=== PATIENT | female | born 1985 | race Two or more races ===

== ENCOUNTER 2017-08-20 11:59 | Emergency (ER) | payer MEDICAID ==
[~2017-08-20] VITALS: Ht 162.6 cm; Wt 68.0 kg
[~2017-08-20 11:59] MED LIST: ALBUTEROL2.5 MG/3 M INH; PREDNISONE10 MG ORAL; PROMETHAZINE-C118 M1 ORAL; ZITHROMAX250 MG ORAL
[2017-08-20 12:09] VITALS: BP 154/84
--- NOTE | 2017-08-20 12:10 | Emergency Room Report ---
History of Present Illness General Chief Complaint: Upper Respiratory Illness Present Illness HPI 32-year-old female presents to the emergency department complaining of cough, wheezes an exacerbation of her asthma. Patient states she is out of her inhaler and nebulizer treatments at home she recently got a cold which exacerbated her asthma. Patient denies rashes, swelling of the lips or tongue. Patient denies neck pain or stiffness, fevers, chills. Denies CP, Palpitations , LOC, AMS, dizziness, Changes in Vision, Sensation, paresthesias, or a sudden severe headache. Allergies: Coded Allergies: No Known Allergies (Unverified , 04/29/16) Patient History Past Medical History: see triage record Past Surgical History: none Pertinent Family History: none Now: No Immunizations: UTD Reviewed Nursing Documentation: PMH: Agreed, PSxH: Agreed Nursing Documentation-PMH Hx Asthma: Yes Review of Systems All Other Systems: negative except mentioned in HPI Physical Exam Vital Signs Date Time Temp Pulse Resp B/P (MAP) Pulse Ox O2 Delivery O2 Flow Rate FiO2 08/20/17 12:02 87 30 154/84 98 Room Air Sp02 EP Interpretation: reviewed, normal - 98% on RA General Appearance: alert, GCS 15, non-toxic, mild distress Head: normocephalic, atraumatic Eyes: bilateral eye normal inspection, bilateral eye PERRL ENT: hearing grossly normal, normal pharynx, no angioedema, normal voice Neck: full range of motion, supple/symm/no masses Respiratory: chest non-tender, no accessory muscle use, speaking full sentences , wheezing - expiratory wheezes bilaterally, moderate Cardiovascular #1: regular rate, rhythm, normal capillary refill Musculoskeletal: back normal, gait/station normal, normal range of motion, non- tender Neurologic: alert, oriented x3, responsive, motor strength/tone normal, sensory intact, speech normal Skin: normal color, no rash, warm/dry, well hydrated Lymphatic: no adenopathy Medical Decision Making PA Attestation Dr. Napier is my supervising Physician whom patient management has been discussed with. Diagnostic Impression: Primary Impression: Asthma Qualified Codes: J45.41 - Moderate persistent asthma with (acute) exacerbation ER Course 32-year-old female presents to the emergency department complaining of cough, wheezes an exacerbation of her asthma. Patient states she is out of her inhaler and nebulizer treatments at home she recently got a cold which exacerbated her asthma. Patient denies rashes, swelling of the lips or tongue. Patient denies neck pain or stiffness, fevers, chills. Denies CP, Palpitations , LOC, AMS, dizziness, Changes in Vision, Sensation, paresthesias, or a sudden severe headache. Ddx considered but are not limited to asthma exacerbation, CHF, URI, pneumonia, PE, strep pharyngitis, meningitis. Vital signs: Pt. is afebrile, VS are WNL H&PE are most consistent with URI, asthma exacerbation ORDERS: none required at this time, the diagnosis is clinical ED INTERVENTIONS: -Albuterol nebulized treatment x 3 -Prednisone PO - re-examination post nebulized treatment lungs are CTA bilaterally. -Gave Pt. ED return precautions with worsening or new symptoms. DISCHARGE: At this time pt. is stable for d/c to home. Will provide printed patient care instructions, and any necessary prescriptions. Care plan and follow up instructions have been discussed with the patient prior to discharge. Disposition: HOME, SELF-CARE Condition: Stable Scripts Codeine/Promethazine Hcl* (PROMETHAZINE-CODEINE SYRUP*) 118 Ml Syrup 5 ML ORAL Q6H Y for For Cough, #118 ML 0 Refills Prov: Kim Dang 08/20/17 Prednisone* (PREDNISONE*) 20 Mg Tablet 40 MG ORAL DAILY for 5 Days, #10 TAB Prov: Kim Dang.Paul. 08/20/17 Albuterol Sulfate* (ALBUTEROL SULFATE HHN*) 2.5 Mg/3 Ml Vial.neb 3 ML INH Q6H Y for Shortness of Breath, #30 EA 0 Refills Prov: Kim Dang. 08/20/17 Albuterol Sulfate* (ALBUTEROL SULFATE MDI*) 8.5 Gm Hfa.aer.ad 2 PUFF INH Q3H, #1 INH 2 Refills Prov: Kim Dang 08/20/17 Patient Instructions: Asthma, Adult, [id number] Additional Instructions: Take medications as directed. Follow up with a Primary Care Provider in 3 days, even if your symptoms have resolved. --Please review list of primary care clinics, if you do not already have a primary care provider Return sooner to ED if new symptoms occur, or current symptoms become worse. - Please note that this Emergency Department Report was dictated using [employer] surgeon technology software, occasionally this can lead to erroneous entry secondary to interpretation by the dictation equipment. Kim Dang Aug 20, 2017 12:10
[2017-08-20] MEDS: Albuterol ud Inhalation HHN SCH ×2 (12:12→12:27)
[2017-08-20 12:46] VITALS: BP 133/63
[2017-08-20] MEDS ORDERED: ALBUTEROL2.5 MG/3 M INH (13:03)
[2017-08-20] MEDS ORDERED: ALBUTEROL SULF8.5 GM INH (13:03)
[2017-08-20] MEDS ORDERED: PREDNISONE20 MG ORAL (13:03)
[2017-08-20] MEDS ORDERED: PROMETHAZINE-C118 M1 ORAL (13:03)
[2017-08-20 13:34] VITALS: BP 128/77
== END 2017-08-20 13:36 | disposition home or self-care (01) ==
LOC: EMR 13:20
DX: J45.909 Unspecified asthma, uncomplicated (principal)
CPT/HCPCS: 94640; 99284

== ENCOUNTER 2018-11-01 19:11 | Emergency (ER) | payer MEDICAID ==
[~2018-11-01] VITALS: Ht 165.1 cm; Wt 88.5 kg
[~2018-11-01 19:11] MED LIST changes: +ALBUTEROL SULF8.5 GM INH; +PREDNISONE20 MG ORAL
[2018-11-01] MEDS ORDERED: EPINEPHrine 1mg/1ml Amp IM ONE (19:15)
[2018-11-01] MEDS ORDERED: Solu-MEDROL 125mg Inj IVP ONE (19:15)
[2018-11-01] MEDS ORDERED: Ipratropium 0.02% Inh Soln 2.5ml UD HHN ONE (19:15)
[2018-11-01 19:20] VITALS: BP 158/109
--- NOTE | 2018-11-01 19:22 | Emergency Room Report ---
History of Present Illness General Chief Complaint: To Be Triaged Source: Patient Present Illness HPI Patient presents with dyspnea. This began earlier today. She has a history of asthma. Her inhaler ran out. She's not on steroids now. She's never been intubated. This is not her worst attack. She denies any chest pain. There is no calf pain or swelling. She doesn't believe she's at this time. No headache, rashes, dysuria, joint pain, anxiety, abdominal pain. Allergies: Coded Allergies: No Known Allergies (Unverified , 04/29/16) Patient History Past Medical History: see triage record Social History: Denies: smoking - former Social History Narrative at home Reviewed Nursing Documentation: PMH: Agreed; PSxH: Agreed Nursing Documentation-PMH Hx Asthma: Yes Review of Systems All Other Systems: negative except mentioned in HPI Physical Exam Vital Signs Date Time Temp Pulse Resp B/P (MAP) Pulse Ox O2 Delivery O2 Flow Rate FiO2 11/01/18 19:18 98.1 77 22 158/109 100 Room Air 11/01/18 19:31 21 Sp02 EP Interpretation: reviewed, normal General Appearance: well appearing, GCS 15, mild distress Head: normocephalic Eyes: bilateral eye normal inspection, bilateral eye PERRL ENT: moist mucus membranes Neck: supple Respiratory: accessory muscle use, wheezing, expiration, inspiration Cardiovascular #1: regular rate, rhythm Cardiovascular #2: 2+ radial (L) Gastrointestinal: normal inspection, non tender, no mass, non-distended, decreased bowel sounds Musculoskeletal: back normal, gait/station normal, normal range of motion Neurologic: alert, oriented x3, grossly normal Psychiatric: mood/affect normal Skin: normal inspection, warm/dry Medical Decision Making Diagnostic Impression: Primary Impression: Asthma Qualified Codes: J45.51 - Severe persistent asthma with (acute) exacerbation ER Course Patient presents with wheezing and dyspnea. Differential includes status asthmaticus, bronchitis, pneumonia amongst others. She be evaluated with EKG, labs and chest x-ray. In addition she'll be treated with Solu-Medrol, intramuscular epinephrine, and breathing treatments. Clinically, doubt PE. EKG normal. CXR slight inc cor. Labs significant for eosinophilia and slightly low magnesium. Improved but wheezes when exercised. Another albuterol. Improved after albuterol. Discussed observation at home and treatment. Patient stable for outpatient observation and treatment. Laboratory Tests Test 11/01/18 19:31 11/01/18 20:29 White Blood Count 9.7 K/UL (4.8-10.8) Red Blood Count 4.46 M/UL (4.20-5.40) Hemoglobin 13.4 G/DL (12.0-16.0) Hematocrit 40.1 % (37.0-47.0) Mean Corpuscular Volume 90 FL (80-99) Mean Corpuscular Hemoglobin 30.1 PG (27.0-31.0) Mean Corpuscular Hemoglobin Concent 33.5 G/DL (32.0-36.0) Red Cell Distribution Width 11.9 % (11.6-14.8) Platelet Count 275 K/UL (150-450) Mean Platelet Volume 7.7 FL (6.5-10.1) Neutrophils (%) (Auto) 62.8 % (45.0-75.0) Lymphocytes (%) (Auto) 22.6 % (20.0-45.0) Monocytes (%) (Auto) 9.3 % (1.0-10.0) Eosinophils (%) (Auto) 4.1 % (0.0-3.0) H Basophils (%) (Auto) 1.2 % (0.0-2.0) Sodium Level 138 MMOL/L (136-145) Potassium Level 4.5 MMOL/L (3.5-5.1) Chloride Level 104 MMOL/L (98-107) Carbon Dioxide Level 23 MMOL/L (21-32) Anion Gap 11 mmol/L (5-15) Blood Urea Nitrogen 14 mg/dL (7-18) Creatinine 0.6 MG/DL (0.55-1.30) Estimate Glomerular Filtration Rate > 60 mL/min (>60) Glucose Level 91 MG/DL (74-106) Calcium Level 9.2 MG/DL (8.5-10.1) Magnesium Level 1.7 MG/DL (1.8-2.4) L Total Bilirubin 0.2 MG/DL (0.2-1.0) Aspartate Amino Transferase (AST) 15 U/L (15-37) Alanine Aminotransferase (ALT) 23 U/L (12-78) Alkaline Phosphatase 88 U/L (46-116) Total Creatine Kinase 81 U/L (26-308) Total Protein 7.6 G/DL (6.4-8.2) Albumin 3.7 G/DL (3.4-5.0) Globulin 3.9 g/dL Albumin/Globulin Ratio 0.9 (1.0-2.7) L Human Chorionic Gonadotropin, Qual Negative (NEGATIVE) Urine Color Pale yellow Urine Appearance Cloudy Urine pH 5 (4.5-8.0) Urine Specific [place] 1.015 (1.005-1.035) Urine Protein Negative (NEGATIVE) Urine Glucose (UA) Negative (NEGATIVE) Urine Ketones Negative (NEGATIVE) Urine Blood 1+ (NEGATIVE) H Urine Nitrite Negative (NEGATIVE) Urine Bilirubin Negative (NEGATIVE) Urine Urobilinogen Normal MG/DL (0.0-1.0) Urine Leukocyte Esterase Negative (NEGATIVE) Urine RBC 2-4 /HPF (0 - 2) H Urine WBC 0-2 /HPF (0 - 2) Urine Squamous Epithelial Cells Moderate /LPF (NONE/OCC) H Urine Bacteria Few /HPF (NONE) Microbiology Date/Time Source Procedure Growth Status 11/01/18 19:35 Nasal Nares Left Influenza Types A,B Antigen (ALBER) - Final Complete EKG Diagnostic Results Rate: normal Rhythm: NSR Rhythm Strip Diag. Results EP Interpretation: yes Rhythm: NSR, no PVC's, no ectopy Chest X-Ray Diagnostic Results Chest X-Ray Diagnostic Results : Chest X-Ray Ordered: Yes # of Views/Limited/Complete: 1 View Indication: Shortness of Breath EP Interpretation: Yes Interpretation: no consolidation, no effusion, no pneumothorax, other - inc cor Impression: No acute disease Electronically Signed by: Electronically signed by Raphael Hopkins MD Last Vital Signs Date Time Temp Pulse Resp B/P (MAP) Pulse Ox O2 Delivery O2 Flow Rate FiO2 11/01/18 22:30 98.1 72 18 144/91 100 Room Air 21 Status: improved Disposition: HOME, SELF-CARE Condition: Improved Scripts Guaifenesin/Codeine Phos* (ROBITUSSIN AC*) 118 Ml Liquid 5 ML ORAL Q6H PRN for For Cough, #90 ML 0 Refills Prov: Raphael Hopkins MD 11/01/18 Prednisone* (PREDNISONE*) 20 Mg Tablet 40 MG ORAL DAILY, #10 TAB Prov: Raphael Hopkins MD 11/01/18 Albuterol Sulfate* (ALBUTEROL SULFATE HHN*) 2.5 Mg/3 Ml Vial.neb 2.5 MG HHN Q4H PRN for Shortness of Breath, #25 VIAL 1 Refill Prov: Raphael Hopkins MD 11/01/18 Albuterol Sulfate* (ALBUTEROL SULFATE MDI*) 8.5 Gm Hfa.aer.ad 2 PUFF INH Q6H, #1 EA 0 Refills Prov: Raphael Hopkins MD 11/01/18 Raphael Hopkins MD Nov 01, 2018 19:22
[2018-11-01] MEDS: Albuterol ud Inhalation HHN SCH ×3 (19:31→20:16)
--- NOTE | 2018-11-01 19:45 | Diagnostic Imaging Report ---
EXAM: XR Chest, 1 View CLINICAL HISTORY: DYSPNEA TECHNIQUE: Frontal view of the chest. COMPARISON: 04/29/2016 FINDINGS: Lungs: Unremarkable. No consolidation. Pleural space: Unremarkable. No pneumothorax. Heart: Prominent cardiomediastinal silhouette may be at least partially secondary to portable technique. Mediastinum: See above. Bones/joints: Unremarkable. IMPRESSION: 1. Prominent cardiomediastinal silhouette may be at least partially secondary to portable technique. 2. Otherwise no acute cardio pulmonary disease.
[2018-11-01 20:04] LABS: ANION GAP 11 mmol/L (5-15); BLOOD UREA NITROGEN 14 mg/dL (7-18); CALCIUM 9.2 MG/DL (8.5-10.1); CARBON DIOXIDE 23 MMOL/L (21-32); CHLORIDE 104 MMOL/L (98-107); CREATININE 0.6 MG/DL (0.55-1.30); POTASSIUM 4.5 MMOL/L (3.5-5.1); SODIUM 138 MMOL/L (136-145)
[2018-11-01 20:08] LABS: ALANINE AMINOTRANSFERASE 23 U/L (12-78); ALBUMIN 3.7 G/DL (3.4-5.0); ALBUMIN/GLOBULIN RATIO 0.9 (1.0-2.7); ALKALINE PHOSPHATASE 88 U/L (46-116); ASPARTATE AMINO TRANSFERASE 15 U/L (15-37); BILIRUBIN,TOTAL 0.2 MG/DL (0.2-1.0); CREATINE KINASE 81 U/L (26-308)
[2018-11-01 21:09] LABS: APPEARANCE,URINE CLOUDY; BILIRUBIN, URINE NEGATIVE (NEGATIVE); COLOR,URINE PALE YELLOW; GLUCOSE, URINE (UA) NEGATIVE (NEGATIVE); KETONES,URINE NEGATIVE (NEGATIVE); LEUKOCYTE ESTERASE ,URINE NEGATIVE (NEGATIVE); NITRITE,URINE NEGATIVE (NEGATIVE); PH,URINE 5 (4.5-8.0); PROTEIN,URINE NEGATIVE (NEGATIVE); UROBILINOGEN,URINE NORMAL MG/DL (0.0-1.0)
[2018-11-01 21:09] LABS: BASOPHILS % (AUTO) 1.2 % (0.0-2.0); EOSINOPHILS % (AUTO) 4.1 % (0.0-3.0); HEMATOCRIT 40.1 % (37.0-47.0); HEMOGLOBIN 13.4 G/DL (12.0-16.0); LYMPHOCYTES % (AUTO) 22.6 % (20.0-45.0); MEAN CORPUSCULAR VOLUME 90 FL (80-99); MONOCYTES % (AUTO) 9.3 % (1.0-10.0); NEUTROPHILS % (AUTO) 62.8 % (45.0-75.0); PLATELET COUNT 275 K/UL (150-450); RED BLOOD COUNT 4.46 M/UL (4.20-5.40); RED CELL DISTRIBUTION WIDTH 11.9 % (11.6-14.8); WHITE BLOOD COUNT 9.7 K/UL (4.8-10.8)
[2018-11-01 21:19] VITALS: BP 150/104
[2018-11-01] MEDS ORDERED: Albuterol ud Inhalation HHN ONE (22:00)
[2018-11-01] MEDS ORDERED: ALBUTEROL SULF8.5 GM INH (22:26)
[2018-11-01] MEDS ORDERED: ALBUTEROL2.5 MG/3 M HHN (22:26)
[2018-11-01] MEDS ORDERED: PREDNISONE20 MG ORAL (22:26)
[2018-11-01] MEDS ORDERED: GUAIFENESIN-CO118 M1 ORAL (22:26)
[2018-11-01 22:30] VITALS: BP 144/91
--- NOTE | 2018-11-02 12:22 | Cardiology Report ---
APPROVED REPORT EKG Measurement Heart [id number] Normal sinus rhythm with sinus arrhythmia Normal ECG
== END 2018-11-01 22:30 | disposition home or self-care (01) ==
LOC: EMR 19:40
DX: J45.51 Severe persistent asthma with (acute) exacerbation (principal); Z87.891 Personal history of nicotine dependence
CPT/HCPCS: 36415; 71045; 80053; 81003; 82550; 83735; 84703; 85025; 86710; 93005; 94640; 96361; 96372; 96374; 99284; J0171; J2930

== ENCOUNTER 2019-04-18 17:24 | Emergency (ER) | payer MEDICAID ==
[~2019-04-18] VITALS: Ht 165.1 cm; Wt 87.1 kg
[~2019-04-18 17:24] MED LIST changes: +ALBUTEROL2.5 MG/3 M HHN; +GUAIFENESIN-CO118 M1 ORAL
[2019-04-18 17:31] VITALS: BP 143/95
--- NOTE | 2019-04-18 17:32 | NUR ---
ED Nurse Note: pt walked in to ER c/o SOB for a week. pt took albuterol inhaler at home but symptoms did not improved. pt aao x4 and ambulatory. skin clean and intact. SOB noted upon speaking.
--- NOTE | 2019-04-18 17:48 | NUR ---
ED Nurse Note: Pt requested breathing treatment. ERPA made aware.
--- NOTE | 2019-04-18 17:52 | NUR ---
ED Nurse Note: ERPA at bedside.
--- NOTE | 2019-04-18 17:55 | NUR ---
ED Nurse Note: pt asked about breathing treatment again. RT contacted.
[2019-04-18] MEDS ORDERED: Albuterol ud Inhalation HHN ONE (18:00)
[2019-04-18] MEDS ORDERED: Solu-MEDROL 125mg Inj IM ONE (18:00)
[2019-04-18] MEDS ORDERED: Ipratropium 0.02% Inh Soln 2.5ml UD HHN ONE (18:00)
--- NOTE | 2019-04-18 18:04 | Emergency Room Report ---
History of Present Illness General Chief Complaint: Upper Respiratory Illness Source: Medical Record Present Illness HPI 33-year-old female presents to the emergency department complaining of shortness of breath, wheezing and difficulty breathing x2 weeks. Denies pain. Patient reports exacerbation of her asthma. Patient states that she has nebulized treatments at home she has been taking which have not been providing her resolvent of her symptoms. Patient states that she is also having to use her rescue inhaler more often than normal. Patient denies fevers or chills she denies chest pain, calf pain, recent travel and she is not taking control. She does report that she is a daily smoker of cigarettes. She denies history of allergies and denies ill contacts. Patient states that she has never had to be intubated in the past but she has had several severe asthma attacks which required aggressive management. Patient states that her symptoms do not feel as severe as they were then she states she is primarily concerned with the prolonged duration of her symptoms. Allergies: Coded Allergies: No Known Allergies (Unverified , 04/29/16) Patient History Past Medical History: see triage record Past Surgical History: none Pertinent Family History: none Last Menstrual Period: 03/23/19 Now: No Reviewed Nursing Documentation: PMH: Agreed; PSxH: Agreed Nursing Documentation-PMH Past Medical History: No History, Except For Hx Asthma: Yes Review of Systems All Other Systems: negative except mentioned in HPI Physical Exam Vital Signs Date Time Temp Pulse Resp B/P (MAP) Pulse Ox O2 Delivery O2 Flow Rate FiO2 04/18/19 17:27 98.2 72 18 143/95 (111) 95 Room Air Sp02 EP Interpretation: reviewed, normal General Appearance: no apparent distress, alert, GCS 15, non-toxic Head: normocephalic, atraumatic Eyes: bilateral eye normal inspection, bilateral eye PERRL ENT: hearing grossly normal, normal voice Neck: full range of motion Respiratory: chest non-tender, no rhonchi, no respiratory distress, no accessory muscle use, speaking full sentences, wheezing - Both inspiratory and expiratory wheezes bilaterally Cardiovascular #1: regular rate, rhythm, no edema Musculoskeletal: gait/station normal, normal range of motion, non-tender Neurologic: alert, oriented x3, responsive, motor strength/tone normal, sensory intact, speech normal, grossly normal Psychiatric: judgement/insight normal Skin: normal color, no rash, warm/dry, well hydrated Medical Decision Making PA Attestation Dr. Bcuio is my supervising Physician whom patient management has been discussed with. Diagnostic Impression: Primary Impression: Asthma Qualified Codes: J45.41 - Moderate persistent asthma with (acute) exacerbation ER Course 33-year-old female presents to the emergency department complaining of shortness of breath, wheezing and difficulty breathing x2 weeks. Denies pain. Patient reports exacerbation of her asthma. Patient states that she has nebulized treatments at home she has been taking which have not been providing her resolvent of her symptoms. Patient states that she is also having to use her rescue inhaler more often than normal. Patient denies fevers or chills she denies chest pain, calf pain, recent travel and she is not taking control. She does report that she is a daily smoker of cigarettes. She denies history of allergies and denies ill contacts. Patient states that she has never had to be intubated in the past but she has had several severe asthma attacks which required aggressive management. Patient states that her symptoms do not feel as severe as they were then she states she is primarily concerned with the prolonged duration of her symptoms. Ddx considered but are not limited to asthma exacerbation, CHF, URI, pneumonia, PE, strep pharyngitis, meningitis. Vital signs: Pt. is afebrile, VS are WNL H&PE are most consistent with URI, asthma exacerbation ORDERS: none required at this time, the diagnosis is clinical ED INTERVENTIONS: -Albuterol nebulized treatment. -Ipratropium bromide nebulized treatment -125 mg of IM Solu-Medrol. - re-examination post nebulized treatment lungs are CTA bilaterally. DISCHARGE: At this time pt. is stable for d/c to home. Will provide printed patient care instructions, and any necessary prescriptions. Care plan and follow up instructions have been discussed with the patient prior to discharge. Chest X-Ray Diagnostic Results Chest X-Ray Diagnostic Results : Chest X-Ray Ordered: Yes # of Views/Limited/Complete: 1 View Indication: Shortness of Breath EP Interpretation: Yes PA Xray: Interpretation reviewed, by supervising MD, and agrees with findings. Interpretation: no consolidation, no effusion, no pneumothorax, no acute cardiopulmonary disease Impression: No acute disease Electronically Signed by: Kim Dang PA-C Last Vital Signs Date Time Temp Pulse Resp B/P (MAP) Pulse Ox O2 Delivery O2 Flow Rate FiO2 04/18/19 17:31 72 18 Room Air 04/18/19 17:31 98.2 143/95 95 Status: improved Disposition: HOME, SELF-CARE Condition: Stable Scripts Albuterol Sulfate* (ALBUTEROL SULFATE HHN*) 2.5 Mg/3 Ml Vial.neb 3 ML INH Q6H PRN for Shortness of Breath, #30 EA 0 Refills Prov: Kim Dang 04/18/19 Albuterol Sulfate* (ALBUTEROL SULFATE MDI*) 8.5 Gm Hfa.aer.ad 2 PUFF INH Q3H, #1 INH 1 Refill Prov: Kim Dang 04/18/19 Codeine/Promethazine Hcl* (PROMETHAZINE-CODEINE SYRUP*) 118 Ml Syrup 5 ML ORAL Q6H PRN for For Cough, #120 ML 0 Refills Prov: Kim Dang 04/18/19 Prednisone* (PREDNISONE*) 20 Mg Tablet 40 MG ORAL DAILY for 5 Days, #10 TAB Prov: Kim Dang 04/18/19 Patient Instructions: Asthma Attack Prevention, Asthma, Adult, [id number] Additional Instructions: Take medications as directed. Follow up with a Primary Care Provider in 3-5 days, even if your symptoms have resolved. --Please review list of primary care clinics, if you do not already have a primary care provider Return sooner to ED if new symptoms occur, or current symptoms become worse. - Please note that this Emergency Department Report was dictated using [employer] professor technology software, occasionally this can lead to erroneous entry secondary to interpretation by the dictation equipment. Kim Dang Apr 18, 2019 18:04
--- NOTE | 2019-04-18 18:25 | NUR ---
RESPIRATORY NOTE: Removed Albuterol 5mg from pyxis, accidentally closed drawer for Atrovent drawer. Pharmacy contacted, asked help from Jai RN to do inventory count. Override Atrovent 500mcg with help of Jai PORTILLO.
[2019-04-18] MEDS ORDERED: Albuterol ud Inhalation ONE (18:26)
[2019-04-18] MEDS ORDERED: Ipratropium 0.02% Inh Soln 2.5ml UD ONE (18:26)
--- NOTE | 2019-04-18 18:30 | NUR ---
ED Nurse Note: pt is getting breathing treatment at bedside by RT.
--- NOTE | 2019-04-18 19:10 | NUR ---
HAND-OFF: Report given to BANDAR Alejandro. no orders to carry out at this moment.
--- NOTE | 2019-04-18 19:24 | NUR ---
ED Nurse Note: Receive dreport from Jeny PORTILLO. Pt on jignesh, [id number] with visitor at bedside. Pt just received breathing treatment. Day shift RN endorsed that we are awaiting CXR results. Will continue to monitor and carry out ER MD's orders.
[2019-04-18] MEDS ORDERED: ALBUTEROL SULF8.5 GM INH (19:29)
[2019-04-18] MEDS ORDERED: ALBUTEROL2.5 MG/3 M INH (19:29)
[2019-04-18] MEDS ORDERED: PREDNISONE20 MG ORAL (19:29)
[2019-04-18] MEDS ORDERED: PROMETHAZINE-C118 M1 ORAL (19:29)
--- NOTE | 2019-04-18 19:41 | NUR ---
ED Nurse Note: Pt cleared by health care Provider for discharge. DC instructions/prescription was given and explained to pt and verbalized understanding of teachings. All medical deviecs such as ID band removed. Pt is AAO x4, ambulatory and left with all personal belongings.
--- NOTE | 2019-04-19 12:10 | Diagnostic Imaging Report ---
Indication: Chest Comparison: 11/01/2018 A single view chest radiograph was obtained. Findings: Cardiomediastinal appearance is within normal limits for age. The lungs are clear. Pulmonary vascularity is appropriate. The diaphragmatic contour is smooth and costophrenic angles are sharp. No pleural effusions are identified. The bones are unremarkable. Impression: No acute findings
== END 2019-04-18 19:41 | disposition home or self-care (01) ==
LOC: EMR 18:00
DX: J45.41 Moderate persistent asthma with (acute) exacerbation (principal); F17.210 Nicotine dependence, cigarettes, uncomplicated
CPT/HCPCS: 71045; 94640; 94664; 96372; 99284; J2930

== ENCOUNTER 2020-05-13 20:07 | Emergency (ER) | payer MEDICAID ==
[~2020-05-13] VITALS: Ht 167.6 cm; Wt 81.6 kg
[~2020-05-13 20:07] MED LIST changes: +FLUCONAZOLE100 MG ORAL; +IBUPROFEN600 MG ORAL; +METRONIDAZOLE500 MG ORAL
[2020-05-13 20:19] VITALS: BP 147/91
--- NOTE | 2020-05-13 20:19 | NUR ---
ED Nurse Note: Patient walked into ED from home c/o SOB x2 days. Reports weakness, nausea and vomiting x yesterday. Per pt, she has contact with her family member who tested positive. Denies any pain at this time. Pt has hx of asthma, she has been using her inahler but no relief. Noted with mild cough, on room air. Covid isolation precaution observed. Pt placed on cardiac monitor technician.
--- NOTE | 2020-05-13 20:29 | Emergency Room Report ---
History of Present Illness General Chief Complaint: Dyspnea/Respdistress Source: Patient Present Illness HPI Patient has been ill all weekend. She has a history of asthma. She had to use her nebulizer yesterday which helped. She has had a mildly productive cough with yellow phlegm without any blood. Since yesterday she has been vomiting and had difficulty keep down any liquids. She has had aches, fatigue and felt chills yesterday without documented fever. She has had loose stools but no diarrhea. She is on her menstruation at this time denies dysuria. Somebody that she has been in close contact for the last week tested positive for COVID-19 today. No sore throat, chest pain, palpitations, abdominal pain, joint pain, rashes, depression, anxiety, visual changes, dizziness, headache. Status post tubal ligation. Allergies: Coded Allergies: No Known Allergies (Unverified , 04/29/16) COVID-19 Screening Contact w/high risk pt: Yes Recent Travel to affected area: No Experienced COVID-19 symptoms?: Yes COVID-19 symptoms experienced: Shortness of Breath COVID-19 Testing performed LICENSED OCCUPATIONAL THERAPIST: No Patient History Past Medical History: see triage record, asthma Social History: Denies: smoking, alcohol use, drug use Social History Narrative Has 4-year-old and 14-year-old Last Menstrual Period: currently on cycle Reviewed Nursing Documentation: PMH: Agreed; PSxH: Agreed Nursing Documentation-PMH Past Medical History: No History, Except For Hx Asthma: Yes Review of Systems All Other Systems: negative except mentioned in HPI Physical Exam Vital Signs Date Time Temp Pulse Resp B/P (MAP) Pulse Ox O2 Delivery O2 Flow Rate FiO2 7/5/20 20:16 98.8 56 18 147/91 (109) 97 Room Air Sp02 EP Interpretation: reviewed, normal General Appearance: well appearing, no apparent distress, alert, GCS 15, non- toxic Head: normocephalic Eyes: bilateral eye normal inspection, bilateral eye PERRL, bilateral eye EOMI ENT: normal pharynx, moist mucus membranes Neck: full range of motion, supple, no meningismus Respiratory: lungs clear, normal breath sounds, no respiratory distress, wheezing - Posttussive Cardiovascular #1: regular rate, rhythm, no edema Cardiovascular #2: 2+ radial (R) Gastrointestinal: normal bowel sounds, non tender, soft Genitourinary: no CVA tenderness Musculoskeletal: normal range of motion, digits/nails normal, no calf tenderness Neurologic: alert, oriented x3, grossly normal Psychiatric: mood/affect normal Skin: no rash, warm/dry Medical Decision Making Diagnostic Impression: Primary Impression: Dyspnea Qualified Codes: R06.09 - Other forms of dyspnea Additional Impressions: Suspected COVID-19 virus infection Nausea and vomiting Qualified Codes: R11.2 - Nausea with vomiting, unspecified ER Course Patient presents with high suspicion of COVID-19 infection with history of asthma. Differential includes COVID-19 pneumonia, asthma exacerbation, nausea and vomiting secondary to COVID-19, dehydration, electrolyte imbalance amongst others. Patient evaluated with chest x-ray and labs. Patient is treated with a dose of Solu-Medrol and IV hydration. In addition Zofran will be given. Based on her history COVID infection is extremely likely. Oxygen saturation is good and the patient is not tachycardic which suggest that patient does not have a thrombotic complications or PE. Patient placed on a environmental monitoring specialist. Chest x-ray without infiltrates. Labs with normal white count no lymphopenia. CMP normal. Inflammatory markers for COVID-19 negative at this time. Magnesium low. Magnesium administered by IV. Patient's lungs remain clear. Patient improved with treatment. Discussed findings with patient. Discussed the high probability that she has COVID-19. Discussed treatment plan. The patient is stable for outpatient observation and treatment. Laboratory Tests Test 05/13/20 20:35 05/13/20 20:53 White Blood Count 6.7 K/UL (4.8-10.8) Red Blood Count 4.21 M/UL (4.20-5.40) Hemoglobin 12.4 G/DL (12.0-16.0) Hematocrit 37.6 % (37.0-47.0) Mean Corpuscular Volume 89 FL (80-99) Mean Corpuscular Hemoglobin 29.4 PG (27.0-31.0) Mean Corpuscular Hemoglobin Concent 32.9 G/DL (32.0-36.0) Red Cell Distribution Width 13.4 % (11.6-14.8) Platelet Count 225 K/UL (150-450) Mean Platelet Volume 9.0 FL (6.5-10.1) Neutrophils (%) (Auto) 58.3 % (45.0-75.0) Lymphocytes (%) (Auto) 31.7 % (20.0-45.0) Monocytes (%) (Auto) 8.7 % (1.0-10.0) Eosinophils (%) (Auto) 0.8 % (0.0-3.0) Basophils (%) (Auto) 0.5 % (0.0-2.0) Prothrombin Time 10.0 SEC (9.30-11.50) Prothrombin Time INR 0.9 (0.9-1.1) Sodium Level 141 MMOL/L (136-145) Potassium Level 3.5 MMOL/L (3.5-5.1) Chloride Level 106 MMOL/L (98-107) Carbon Dioxide Level 24 MMOL/L (21-32) Anion Gap 12 mmol/L (5-15) Blood Urea Nitrogen 16 mg/dL (7-18) Creatinine 1.0 MG/DL (0.55-1.30) Estimated Glomerular Filtration Rate > 60 mL/min (>60) Glucose Level 100 MG/DL (74-106) Calcium Level 8.1 MG/DL (8.5-10.1) L Magnesium Level 1.7 MG/DL (1.8-2.4) L Ferritin 18 NG/ML (8-388) Total Bilirubin 0.1 MG/DL (0.2-1.0) L Aspartate Amino Transferase (AST) 23 U/L (15-37) Alanine Aminotransferase (ALT) 33 U/L (12-78) Alkaline Phosphatase 83 U/L (46-116) Lactate Dehydrogenase 140 U/L (81-234) Total Creatine Kinase 56 U/L (26-308) C-Reactive Protein, Quantitative < 0.4 mg/dL (0.00-0.90) Pro-B-Type Natriuretic Peptide 64 pg/mL (0-125) Total Protein 6.8 G/DL (6.4-8.2) Albumin 3.4 G/DL (3.4-5.0) Globulin 3.4 g/dL Albumin/Globulin Ratio 1.0 (1.0-2.7) Urine Color Pale yellow Urine Appearance Clear Urine pH 6 (4.5-8.0) Urine Specific [place] 1.025 (1.005-1.035) Urine Protein Negative (NEGATIVE) Urine Glucose (UA) Negative (NEGATIVE) Urine Ketones Negative (NEGATIVE) Urine Blood 5+ (NEGATIVE) H Urine Nitrite Negative (NEGATIVE) Urine Bilirubin Negative (NEGATIVE) Urine Urobilinogen Normal MG/DL (0.0-1.0) Urine Leukocyte Esterase Negative (NEGATIVE) Urine RBC 10-15 /HPF (0 - 2) H Urine WBC 2-4 /HPF (0 - 2) Urine Squamous Epithelial Cells Moderate /LPF (NONE/OCC) H Urine Bacteria Few /HPF (NONE) Urine HCG, Qualitative Negative (NEGATIVE) Rhythm Strip Diag. Results EP Interpretation: yes Rhythm: NSR, no PVC's, no ectopy Chest X-Ray Diagnostic Results Chest X-Ray Diagnostic Results : Chest X-Ray Ordered: Yes # of Views/Limited/Complete: 1 View Indication: Shortness of Breath EP Interpretation: Yes Interpretation: no consolidation, no effusion, no pneumothorax Impression: No acute disease Electronically Signed by: Electronically signed by Raphael Hopkins MD Last Vital Signs Date Time Temp Pulse Resp B/P (MAP) Pulse Ox O2 Delivery O2 Flow Rate FiO2 05/13/20 22:13 98.8 71 19 136/85 100 Room Air Status: improved Disposition: HOME, SELF-CARE Condition: Improved Scripts Acetaminophen (Tylenol) 325 Mg Tablet 650 MG ORAL Q6H PRN for Prn Pain/Headache/Temp > 101, #20 TAB 0 Refills Prov: Raphael Hopkins MD 05/13/20 Ondansetron Odt* (ZOFRAN ODT*) 4 Mg Tab.rapdis 4 MG BC EVERY 8 HOURS PRN for Nausea & Vomiting, #6 TAB 1 Refill Prov: Raphael Hopkins MD 05/13/20 Prednisone* (PREDNISONE*) 20 Mg Tablet 40 MG ORAL DAILY, #10 TAB Prov: Raphael Hopkins MD 05/13/20 Albuterol Sulfate* (Albuterol Sulfate Hfa*) 8.5 Gm Hfa.aer.ad 2 PUFF INH Q6H, #1 INH 1 Refill Prov: Raphael Hopkins MD 05/13/20 Raphael Hopkins MD May 13, 2020 20:29
[2020-05-13] MEDS ORDERED: Solu-MEDROL 125mg Inj IVP ONE (20:30)
[2020-05-13] MEDS ORDERED: Solu-MEDROL 125mg Inj ONE (20:33)
--- NOTE | 2020-05-13 20:35 | NUR ---
ED Nurse Note: Iv line established. Blood specimen collected and sent to lab.
--- NOTE | 2020-05-13 20:47 | NUR ---
ED Nurse Note: Xray at bedside.
[2020-05-13 20:51] LABS: BASOPHILS % (AUTO) 0.5 % (0.0-2.0); EOSINOPHILS % (AUTO) 0.8 % (0.0-3.0); HEMATOCRIT 37.6 % (37.0-47.0); HEMOGLOBIN 12.4 G/DL (12.0-16.0); LYMPHOCYTES % (AUTO) 31.7 % (20.0-45.0); MEAN CORPUSCULAR VOLUME 89 FL (80-99); MONOCYTES % (AUTO) 8.7 % (1.0-10.0); NEUTROPHILS % (AUTO) 58.3 % (45.0-75.0); PLATELET COUNT 225 K/UL (150-450); RED BLOOD COUNT 4.21 M/UL (4.20-5.40); RED CELL DISTRIBUTION WIDTH 13.4 % (11.6-14.8); WHITE BLOOD COUNT 6.7 K/UL (4.8-10.8)
--- NOTE | 2020-05-13 20:55 | NUR ---
ED Nurse Note: Urine specimen collected and sent to lab.
[2020-05-13 20:56] LABS: INR 0.9 (0.9-1.1)
[2020-05-13 21:02] LABS: ANION GAP 12 mmol/L (5-15); BLOOD UREA NITROGEN 16 mg/dL (7-18); CALCIUM 8.1 MG/DL (8.5-10.1); CARBON DIOXIDE 24 MMOL/L (21-32); CHLORIDE 106 MMOL/L (98-107); POTASSIUM 3.5 MMOL/L (3.5-5.1); SODIUM 141 MMOL/L (136-145)
[2020-05-13 21:07] LABS: APPEARANCE,URINE CLEAR; BILIRUBIN, URINE NEGATIVE (NEGATIVE); COLOR,URINE PALE YELLOW; GLUCOSE, URINE (UA) NEGATIVE (NEGATIVE); KETONES,URINE NEGATIVE (NEGATIVE); LEUKOCYTE ESTERASE ,URINE NEGATIVE (NEGATIVE); NITRITE,URINE NEGATIVE (NEGATIVE); PH,URINE 6 (4.5-8.0); PROTEIN,URINE NEGATIVE (NEGATIVE); UROBILINOGEN,URINE NORMAL MG/DL (0.0-1.0)
[2020-05-13 21:14] LABS: ALANINE AMINOTRANSFERASE 33 U/L (12-78); ALBUMIN 3.4 G/DL (3.4-5.0); ALKALINE PHOSPHATASE 83 U/L (46-116); ASPARTATE AMINO TRANSFERASE 23 U/L (15-37); CREATINE KINASE 56 U/L (26-308)
--- NOTE | 2020-05-13 21:21 | Diagnostic Imaging Report ---
EXAM: XR Chest, 1 View CLINICAL HISTORY: DYSPNEA TECHNIQUE: Frontal view of the chest. COMPARISON: 04/18/2019 FINDINGS: Lungs: Unremarkable. No consolidation. Pleural space: Unremarkable. No pneumothorax. Heart: Unremarkable. No cardiomegaly. Mediastinum: Unremarkable. Bones/joints: Unremarkable. IMPRESSION: No acute cardiopulmonary disease.
[2020-05-13 21:22] LABS: FERRITIN 18 NG/ML (8-388); LACTATE DEHYDROGENASE 140 U/L (81-234)
[2020-05-13 21:29] LABS: BILIRUBIN,TOTAL 0.1 MG/DL (0.2-1.0)
[2020-05-13] MEDS ORDERED: ALBUTEROL SULF8.5 G1 INH (21:57)
[2020-05-13] MEDS ORDERED: PREDNISONE20 MG ORAL (21:58)
[2020-05-13] MEDS ORDERED: TYLENOL325 MG ORAL (21:58)
[2020-05-13] MEDS ORDERED: ONDANSETRON ODT4 MG BC (21:58)
[2020-05-13 22:13] VITALS: BP 136/85
--- NOTE | 2020-05-13 22:13 | NUR ---
ED Nurse Note: Pt cleared by ERMD for discharge. DC instructions/prescription was given and explained to pt and verbalized understanding of teachings. All medical deviecs such as ID band and IV line removed. Pt is AAO x4, ambulatory and left with all personal belongings.
== END 2020-05-13 22:13 | disposition home or self-care (01) ==
LOC: EMR 20:20
DX: R06.09 Other forms of dyspnea (principal); R11.2 Nausea with vomiting, unspecified
CPT/HCPCS: 36415; 71045; 80053; 81003; 81025; 82550; 82728; 83615; 83735; 83880; 85025; 85610; 86140; 96361; 96365; 96375; J2405; J2930; J7030; Z7502; 99284